=== PATIENT | female | born 2005 | race Caucasian/White ===

== ENCOUNTER → 2025-10-16 | Outpatient (CLI) | payer SELFPAY ==
[2025-10-16 12:25] LABS: Hematocrit 39.0 % (37-47); Hemoglobin 12.8 g/dL (12.0-15.0); Immature Granulocytes Count 0.020 X10^3/uL (0.0-0.0); Mean Corp Hgb Conc 32.8 g/dL (32-36); Mean Corpuscular Volume 87.8 fL (81-99); Mean Platelet Vol. 9.3 fl (6.2-12.0); NRBC Flagged by Analyzer 0 % (0-5); Platelet Count 256 K/mm3 (150-450); RBC Distribution Width CV 11.9 % (11.6-14.6); RBC Distribution Width SD 38.6 fl (35.1-43.9); Red Blood Count 4.44 M/mm3 (4.2-5.4); White Blood Count 7.0 K/mm3 (4.4-11.0)
[2025-10-16 12:47] LABS: CRP < 3.00 mg/L (0.0-3.0)
== END | disposition home or self-care (01) ==
LOC: MTLAB 10:36
PROVIDERS: Referring Provider Optometrist; Visit Provider Optometrist
DX: H43.89 Other disorders of vitreous body (principal)
CPT/HCPCS: 36415; 85025; 85652; 86140